=== PATIENT | male | born 1965 | race Caucasian/White ===

== ENCOUNTER 2024-08-31 12:50 | Emergency (ER) | payer OTHER ==
[~2024-08-31] VITALS: Ht 177.8 cm; Wt 80.0 kg
[2024-08-31 12:55] VITALS: O2SAT 98
[2024-08-31 14:14] LABS: BASOPHILS % 0.6 % (0.0-2.0); CHLORIDE 106 mEq/L (98-107); HEMATOCRIT. 34.8 % (42.0-52.0); HEMOGLOBIN. 11.8 g/dL (14.0-18.0); LYMPHOCYTES % 7.3 % (20.0-50.0); MEAN CORPUSCULAR HEMOGLOBIN 30.5 pg (28.0-32.0); MEAN CORPUSCULAR HGB CONC 33.8 g/dL (31.0-37.0); MEAN CORPUSCULAR VOLUME 90.2 fL (80.0-94.0); MEAN PLATELET VOLUME 8.3 fl (7.4-10.4); MONOCYTES % 9.5 % (2.0-8.0); NEUTROPHILS % 81.6 % (40.0-76.0); PLATELET 165 x1000/uL (130-400); POTASSIUM 4.6 mEq/L (3.5-5.1); RED BLOOD CELL COUNT 3.85 mill/uL (4.7-6.1); SODIUM 140 mEq/L (136-145); WHITE BLOOD COUNT 5.1 x1000/uL (4.5-11.0)
[2024-08-31 14:15] LABS: CARBON DIOXIDE 25 mEq/L (21-32)
[2024-08-31 14:16] LABS: CALCIUM 9.4 mg/dL (8.7-10.4)
[2024-08-31 14:20] LABS: CREATININE 1.6 mg/dL (0.6-1.3)
[2024-08-31 14:21] LABS: GLUCOSE 116 mg/dL (70-105); UREA NITROGEN BLOOD 21 mg/dL (9-23)
[2024-08-31 14:22] LABS: ALANINE AMINOTRANSFERASE 7 IU/L (10-49); ALBUMIN 3.8 g/dL (3.2-4.8); ASPARTATE AMINOTRANSFERASE 12 IU/L (<34); TROPONIN I HIGH SENSITIVITY 5 ng/L (3.0-53)
[2024-08-31 14:23] LABS: BILIRUBIN TOTAL 0.3 mg/dL (0.1-1.0); PROTEIN TOTAL 6.1 g/dL (6.0-8.3)
[2024-08-31 16:45] VITALS: BP 113/64; PULSE 63; RESP 18; TEMP 36.94740; O2SAT 97
== END 2024-08-31 16:58 | disposition home or self-care (01) ==
LOC: ER 13:43
DX: R55 Syncope and collapse (principal); E78.5 Hyperlipidemia, unspecified; Z79.01 Long term (current) use of anticoagulants
CPT/HCPCS: 36415; 71045; 80053; 84484; 85025; 93005; 99285